=== PATIENT | male | born 1990 | race Caucasian/White ===

== ENCOUNTER 2018-10-30 12:13 | Emergency (ER) | payer OTHER ==
[~2018-10-30] VITALS: Ht 170.2 cm; Wt 79.4 kg
[~2018-10-30 12:13] MED LIST: KETO10TA2 PO; MEDROL8 MG PO; TAMS0.4C PO; TIVICAY50 MG; TRUVADA 100 MG1 EACH
[2018-10-30] MEDS ORDERED: AMOX1TAB5 PO (16:23)
[2018-10-30] MEDS ORDERED: TUSSI PRES-B L120 M1 PO (16:23)
== END 2018-10-30 16:23 | disposition home or self-care (01) ==
LOC: ER 12:13
DX: B34.9 Viral infection, unspecified (principal)